=== PATIENT | male | born 1995 | race Caucasian/White ===

== ENCOUNTER 2018-11-29 22:05 | Emergency (ER) | payer OTHER ==
[2018-11-29] MEDS ORDERED: Sulfameth/Trimethoprim DS 800-160mg TAB ONE (23:00)
[2018-11-29] MEDS ORDERED: methylPREDNISolone Acetate 40 mg/ml Vial ONE (23:01)
== END 2018-11-29 23:05 | disposition home or self-care (01) ==
LOC: BURERS 22:05
DX: L25.9 Unspecified contact dermatitis, unspecified cause (principal); L03.115 Cellulitis of right lower limb; F17.210 Nicotine dependence, cigarettes, uncomplicated; F41.9 Anxiety disorder, unspecified; G43.909 Migraine, unspecified, not intractable, without status migrainosus; Z79.899 Other long term (current) drug therapy
CPT/HCPCS: 96372; J1030